=== PATIENT | male | born 1970 | race African-American/Black ===

== ENCOUNTER 2020-12-14 17:42 | Observation (INO) | payer MEDICARE, MEDICAID ==
[~2020-12-14] VITALS: Ht 188 cm; Wt 83.0 kg
[~2020-12-14 17:42] MED LIST: (NONE)25 ML; (NONE)25 ML IM; ALLEGRA-D 1212 HOUR PO; AUGMENTIN500TAB PO; BACTRIM DS1 TAB PO; CEPHALEXIN500 MG OR; CIPRO500 MG OR; CYANOCOBALAM1000 MCG IM; DILANTIN100 MG PO; FLULAVAL IM; KEFLEX500 MG PO; NAPROSYN500 MG PO; VITAMIN B-121000 MC1 IM; ZOFRAN ODT4 MG OR; ZPAK PO
--- NOTE | 2020-12-14 17:42 | NUR ---
PT ARRIVES VIA EMS STRETCHER TO ROOM # 9
--- NOTE | 2020-12-14 19:08 | NUR ---
Andrew BROWN CASINO GAMING WORKER IN ROOM COLLECTING LABS.
--- NOTE | 2020-12-14 19:14 | NUR ---
EKG COMPLETED AND GIVEN TO PHYSICIAN.
[2020-12-14 19:16] LABS: HEMATOCRIT 47.2 % (39.0-50.0); HEMOGLOBIN 15.8 g/dl (14.0-18.0); IMMATURE GRANULOCYTES 0.1 % (0.0-5.0); MEAN CELL VOLUME 88.7 fL CALC (80.0-100.0); MEAN CORPUSCULAR HGB 29.7 pG CALC (26.0-32.0); MEAN CORPUSCULAR HGB CONC 33.5 g/dL CAL (32.0-36.0); NEUT# 5.29 thou/uL (1.82-7.42); RED BLOOD COUNT 5.32 mill/uL (4.70-6.10); RED CELL DISTRI WIDTH 12.5 % (11.5-15.5)
[2020-12-14 19:34] LABS: ALBUMIN 4.7 g/dL (3.2-5.0); ALKALINE PHOSPHATASE 79 u/l (38-126); ANION GAP 15 (6-22 (CALC)); BILIRUBIN, TOTAL 0.6 mg/dL (0.0-1.4); BUN 9 mg/dL (9-20); BUN/CREATININE RATIO 7 (12-20 (CALC)); CARBON DIOXIDE 27 mmol/l (22-30); CHLORIDE 99 mmol/l (95-108); CREATININE 1.2 mg/dL (0.7-1.3); GFR > 60 ML/MIN (>=60 (CALC)); GFR FOR AFR.AMER. > 60 ML/MIN (>=60 (CALC)); POTASSIUM 4.2 mmol/l (3.5-5.1); SGOT/AST 23 u/l (17-59); SODIUM 137 mmol/l (137-146)
--- NOTE | 2020-12-14 19:39 | NUR ---
CALL RECEIVED FROM PT'S AUNT, PROVIDED PT WITH CALLERS NAME. PT VERBALIZES PERMISSION FOR UPDATES TO BE PROVIDED. UPDATE ON PT'S STATUS PROVIDED.
--- NOTE | 2020-12-14 19:45 | NUR ---
PT DOWN TO CT.
--- NOTE | 2020-12-14 19:55 | NUR ---
R-ESSIE 20G INITIATED X1 ATTEMPT FOR CTA IN CT DEPARTMENT.
--- NOTE | 2020-12-14 20:20 | NUR ---
PT RETURNS FROM CT BACK TO ROOM 9.
--- NOTE | 2020-12-14 20:36 | NUR ---
Andrew BROWN MEAT PROCESS WORKER COLLECTED 2ND SET BLOOD CX PERIPHERALLY.
--- NOTE | 2020-12-14 20:40 | NUR ---
PT CHANGED INTO GOWN, REMOVES SHIRT AND SHORTS. CLOTHING HAS STRONG URINE SMELL. PT REFUSES REMOVE BOXERS. SHIRT AND SHORTS BAGGED AND GIVEN TO BROTHER.
--- NOTE | 2020-12-14 20:45 | NUR ---
URINE SAMPLE COLLECTED AND SENT TO LAB
--- NOTE | 2020-12-14 21:04 | NUR ---
COVID SWAB COLLECTED BY Hitesh FELICIANO RN.
--- NOTE | 2020-12-14 21:23 | NUR ---
TELEPHONE REPORT GIVEN TO Moshe ULLOA RN, PT TRANSFERRED UPSTAIRS VIA .
--- NOTE | 2020-12-14 21:50 | NUR ---
ADMITTING ROOM PROVIDED TO BROTHER HE REQUESTED.
--- NOTE | 2020-12-14 21:57 | NUR ---
ATTEMPTED TO CALL REPORT TO [facility] UNIT. ADVISED NURSE UNAVAILABLE AND SHE WILL CALL BACK.
--- NOTE | 2020-12-14 22:23 | NUR ---
TELEPHONE REPORT GIVEN TO Moshe ULLOA RN, PT TRANSFERRED UPSTAIRS VIA .
--- NOTE | 2020-12-14 22:25 | NUR ---
Admission Note Report Given to: Moshe ULLOA Transported by: X Wheelchair Stretcher Transported with: X Nurse Transporter Patent IV O2 Women'S Studies Lecturer Location: ICU X [facility]
[2020-12-14 22:39] VITALS: BP 156/90
--- NOTE | 2020-12-14 22:45 | NUR ---
Received admission from ER. Oriented to person and place. Vital signs are stable, refused pain at this time. Admission Data and admission assesment completed. Educated and oriented PT about plan of care, medications, fall precautions and Med-Surge rules department. No personal belons observed aexcept underswear. Pt move and used the urinal by himself.
--- NOTE | 2020-12-15 | NUR ---
Hourly rounding done. Pt refused any pain at this time. Follow seizure and falls precautions.
[2020-12-15 00:28] LABS: URINE BILIRUBIN - DIPSTICK NEGATIVE (NEGATIVE); URINE BLOOD DIPSTICK NEGATIVE (NEGATIVE); URINE CLARITY CLEAR; URINE COLOR YELLOW; URINE GLUCOSE - DIPSTICK NEGATIVE (NEGATIVE); URINE KETONE NEGATIVE (NEGATIVE); URINE LEUK ESTERASE SMALL (Negative); URINE NITRITE - DIPSTICK NEGATIVE (Negative); URINE PROTEIN - DIPSTICK NEGATIVE (NEG-TRACE); URINE UROBILINOGEN - DIPSTICK 0.2 E.U./dL (0.2)
[2020-12-15 00:48] LABS: URINE SQUAMOUS EPITHELIAL CELL FEW EPI/hpf (0-FEW)
[2020-12-15 04:00] VITALS: BP 124/75
--- NOTE | 2020-12-15 04:18 | NUR ---
Hourly rounding. PT refused any pain at this time. Vitals signs are stable. follow Seuzures and falls precautions.
--- NOTE | 2020-12-15 07:00 | NUR ---
PT REPORT RECEIVED FROM NIGHT NURSESTEFANIA
--- NOTE | 2020-12-15 08:00 | NUR ---
PT WAS FOUND RESTING IN BED IN SEMI-GRACE'S POSITION;PT IS ALERT AND ORIENTED;HE WAS ORIENTED TO PERSON AND PLACE, BUT UNABLE TO TELL ME HIS BIRTHDATE;PT SPEECH IS SLURRED BUT ACCORDING TO FAMILY THIS IS NORMAL;VS AND ASSESSMENT WERE COMPLETED;HEART SOUNDS ARE REGULAR IN RATE AND RHYTHM;LUNG SOUNDS ARE CLEAR BUT DIMINISHED IN ALL LOBES;RESPIRATIONS ARE EVEN AND UNLABORED ON RA;ABDOMEN IS SOFT AND ACTIVE BOWEL SOUNDS PRESENT IN ALL QUADRANTS;#20G IV IN RAC IS SL, PATENT AND APPEARS FREE OF COMPLICATIONS AT THIS TIME;SAFETY PRECAUTIONS IN PLACE;SEIZURE PRECAUTIONS IN PLACE WITH SIDE RAILS PADDED;CALL LIGHT WITHIN REACH;PT ENCOURAGED TO CALL WITH ANY NEEDS OR CONCERNS;BED IN LOWEST POSITION WITH BED ALARM ON;WILL CONTINUE TO MONITOR.
--- NOTE | 2020-12-15 10:00 | NUR ---
AND MARCO BROTHERS AT BEDSIDE DISCUSSING POC WITH PT
--- NOTE | 2020-12-15 12:00 | NUR ---
PT WAS FOUND RESTING IN BED EATING LUNCH;PT HAS NO COMPLAINTS OF PAIN AT THIS TIME;SAFETY PRECAUTIONS IN PLACE;SEIZURE PRECAUTIONS IN PLACE;BED IN LOWEST POSITION WITH BED ALARM ON;CALL LIGHT WITHIN REACH;WILL CONTINUE TO MONITOR.
[2020-12-15 15:36] VITALS: BP 131/93
--- NOTE | 2020-12-15 16:00 | NUR ---
PT WAS FOUND IN BED WATCHING TV;BROTHER HAD BEEN AT BEDSIDE EARLIER;#20G IV IN RAC IS SL, PATENT AND FREE OF COMPLICATIONS AT THIS TIME;SAFETY AND SEIZURE PRECAUTIONS IN PLACE;CALL LIGHT WITHIN REACH;WILL CONTINUE TO MONITOR.
[2020-12-15 21:12] VITALS: BP 133/87
--- NOTE | 2020-12-15 22:25 | NUR ---
PT RECEIVED VISITORS AT THIS TIME, APPOVED BY MR KRUSE (), PT ARE OK WITH THE FAMILY MEMBER, EDUCATED AND ORIENTED ABOUT VISITIORS HOURS FROM [facility].
--- NOTE | 2020-12-15 22:28 | NUR ---
RECEIVED PT FROM MS. JULIANE LANDA. PT ORIENTED TO PERSON AND PLACE. VITALS SIGNS ARE STABLE. NEW ORDER FOR LIDOCAINE PENDING, MEDICATION ARE NOT AVALAIBLE AT THIS TIME, MR. KRUSE() ARE AWARE, FOLLOW UP TOMORROW AT DAY SHIFT.
--- NOTE | 2020-12-16 00:36 | NUR ---
AFTER RECEIVED VISITED FROM FAMILY MEMBER (CHANDANA HIS SISTER) PT OBSERVED CALM, COOPERATIVE AND SLEEP. REFUSED PAIN AT THIS TIME AND VITAL SIGNS ARE STABLE. PT EDUCATED ABOUT FALLS AND SEUZURES PRECAUTIONS.
--- NOTE | 2020-12-16 04:24 | NUR ---
HOURLY ROUNDING. VITAL SIGNS ARE STABLE, PT OBSERVED CALM, AND SLEEP. NO COMPLAINS ABOUT PAIN. RE-EDUCATED ABOUT PLAN OF CARE, SEIZURES AND FALLS PRECAUTIONS.
[2020-12-16 05:04] VITALS: BP 117/74
[2020-12-16 05:53] LABS: HEMATOCRIT 43.5 % (39.0-50.0); HEMOGLOBIN 14.9 g/dl (14.0-18.0); IMMATURE GRANULOCYTES 0.1 % (0.0-5.0); MEAN CELL VOLUME 88.1 fL CALC (80.0-100.0); MEAN CORPUSCULAR HGB 30.2 pG CALC (26.0-32.0); MEAN CORPUSCULAR HGB CONC 34.3 g/dL CAL (32.0-36.0); NEUT# 5.13 thou/uL (1.82-7.42); RED BLOOD COUNT 4.94 mill/uL (4.70-6.10); RED CELL DISTRI WIDTH 12.4 % (11.5-15.5)
[2020-12-16 06:16] LABS: ALBUMIN 4.2 g/dL (3.2-5.0); ALKALINE PHOSPHATASE 72 u/l (38-126); ANION GAP 14 (6-22 (CALC)); BILIRUBIN, TOTAL 0.6 mg/dL (0.0-1.4); BUN 12 mg/dL (9-20); BUN/CREATININE RATIO 11 (12-20 (CALC)); CARBON DIOXIDE 27 mmol/l (22-30); CHLORIDE 101 mmol/l (95-108); CREATININE 1.2 mg/dL (0.7-1.3); GFR > 60 ML/MIN (>=60 (CALC)); GFR FOR AFR.AMER. > 60 ML/MIN (>=60 (CALC)); SODIUM 138 mmol/l (137-146); TOTAL PROTEIN 8.1 g/dL (6.3-8.2)
[2020-12-16 06:30] LABS: SGOT/AST 61 u/l (17-59)
--- NOTE | 2020-12-16 07:20 | NUR ---
REPORT RECEIVED FROM CORDELL AGUIAR
--- NOTE | 2020-12-16 08:50 | NUR ---
PT RESTING IN SEMI FOWLERS POSITION,A&O X3 WITH GARBLED SPEECH;VS OBTAINED AND ASSESSMENT COMPLETED;PT DENIES ANY CURRENT PAIN OR DISCOMFORTS,PAIN SCALE AND REPORTING EDUCATED;RESPIRATIONS EVEN AND UNLABORED ON RA,CLEAR LUNG SOUNDS;ABDOMEN SOFT ON PALPATION AND ACTIVE IN ALL 4 QUADRANTS;STRONG PEDAL PULSES;SKIN INTACT;#20G TO RAC FLUSHED AND PATENT,SITE APPEARS HEALTHY;SEIZURE PRECAUTIONS IN PLACE;PT ENCOURAGED TO CALL FOR ASSISTANCE IF NEEDED;FALL PRECAUTIONS IN PLACE WITH BED IN THE LOWEST POSITION AND CALL LIGHT IN REACH;WILL CONTINUE TO MONITOR
[2020-12-16 08:53] VITALS: BP 131/84
--- NOTE | 2020-12-16 11:25 | NUR ---
PT RESTING IN SEMI FOWLERS POSITION;RESPIRATIONS EVEN AND UNLABORED ON RA;PT DENIES ANY CURRENT PAIN OR DISCOMFORTS;IV SITE PATENT;PT ENCOURAGED TO CALL FOR ASSISTANCE IF NEEDED;FALL PRECAUTIONS IN PLACE WITH CALL LIGHT IN REACH;WILL CONTINUE TO MONITOR
--- NOTE | 2020-12-16 12:10 | NUR ---
AT BEDSIDE DISCUSSING POC WITH PT.
[2020-12-16] MEDS ORDERED: ZPAK PO (12:51)
[2020-12-16] MEDS ORDERED: IBUPROFEN600 MG PO (12:52)
--- NOTE | 2020-12-16 14:10 | NUR ---
ALL DISCHARGE INSTRUCTIONS PROVIDED AT THIS TIME;PT INSTRUCTED TO F/U WITH PCP. COMPLETE COURSE OF ABX, CONTINUE SEIZURE MEDICATIONS AND USE I.S;PT EDUCATED ON I.S. AT THIS TIME AND DEMONSTRATED UNDERSTANDING;ENCOURAGED USE 10X PER HOUR;RX FOR MOTRIN AND ZITHRO PROVIDED;IV SITE REMOVED WITH CATHETER INTACT;PT DENIES ANY ADDITIONAL NEEDS;WHEELCHAIR TO BE PROVIDED FOR D/C HOME;SISTER TO TRANSPORT PT HOME;WILL CONTINUE TO MONITOR
--- NOTE | 2020-12-16 14:40 | NUR ---
Discharge instructions given. Patient verbalizes understanding of same. Discharged in stable condition via Wheelchair to Home with family. All belongings sent with pt. PT TRANSPORTED TO [facility] IN STABLE CONDITION VIA WHEELCHAIR ACCOMPANIED BY SISTER AND ROMM[place].ALL BELONINGS LEFT WITH PT.
--- NOTE | 2020-12-18 08:24 | NUR ---
PRELIMINARY BLOOD CX RESULTS SHOW GRAM POSITIVE COCCI IN 2/4 VIALS, SAME SET. REPORTED TO SHIRA. PT RECEIVED ZITHROMAX AND ROCEPHIN WHILE ADMITTED, WAS DISCHARGED ON ZPAK. NO NEW ORDERS RECEIVED, WWILL F/U WITH FINAL
== END 2020-12-16 14:39 | disposition home or self-care (01) ==
LOC: EDBD 17:42 → ED 17:42 → ED-I 20:07 → ED 20:58 → MS2 20:59
PROVIDERS: Emergency Medicine; ADMIT Internal Medicine; ATTEND Internal Medicine
DX: S22.42XA Multiple fractures of ribs, left side, initial encounter for closed fracture (principal); J18.9 Pneumonia, unspecified organism; G40.909 Epilepsy, unspecified, not intractable, without status epilepticus; R47.89 Other speech disturbances; W18.39XA Other fall on same level, initial encounter; Y92.009 Unspecified place in unspecified non-institutional (private) residence as the place of occurrence of the external cause; Z20.822 Contact with and (suspected) exposure to COVID-19
CPT/HCPCS: G0378; Q9967

== ENCOUNTER 2024-01-28 20:08 | Emergency (ER) | payer MEDICARE ==
[2024-01-28] VITALS (10 sets, daily range): BP systolic 119–138; BP diastolic 74–89
[~2024-01-28] VITALS: Ht 193 cm; Wt 104.0 kg
[~2024-01-28 20:08] MED LIST changes: +IBUPROFEN600 MG PO
[2024-01-28] MEDS ORDERED: SODIUM CHLORIDE 0.9% 1,000 ML IV STA ×2 (20:28→21:31)
[2024-01-28] MEDS ORDERED: PROMETHAZINE HCL 25 MG/ML AMP IV ONE (20:30)
[2024-01-28] MEDS ORDERED: KETOROLAC TROMETHAMINE 30 MG/ML SDV IV ONE (20:30)
[2024-01-28 20:54] LABS: BASO% 0.2 % (0-3); HEMATOCRIT 40.1 % (39.0-50.0); HEMOGLOBIN 13.5 g/dl (14.0-18.0); LYMPH% 32.1 % (15-41); MEAN CELL VOLUME 88.7 fL CALC (80.0-100.0); MEAN CORPUSCULAR HGB 29.9 pG CALC (26.0-32.0); MEAN CORPUSCULAR HGB CONC 33.7 g/dL CAL (32.0-36.0); MONO% 14.8 % (2-13); NEUT# 2.69 thou/uL (1.82-7.42); NEUT% 52.9 % (42-76); RED BLOOD COUNT 4.52 mill/uL (4.70-6.10); RED CELL DISTRI WIDTH 12.2 % (11.5-15.5)
[2024-01-28 21:01] LABS: ALBUMIN 4.2 g/dL (3.2-5.0); BILIRUBIN, TOTAL 0.7 mg/dL (0.2-1.3); CREATININE 1.3 mg/dL (0.7-1.3); POTASSIUM 3.5 mmol/l (3.5-5.1); TOTAL PROTEIN 7.9 g/dL (6.3-8.2)
[2024-01-28] MEDS ORDERED: LACTATED RINGER'S 1,000 ML IV ONE (22:20)
[2024-01-28] MEDS ORDERED: PROMETHAZINE HY25 M1 PO (23:13)
== END 2024-01-28 23:30 | disposition home or self-care (01) ==
LOC: ED 20:08
PROVIDERS: Family Medicine
DX: U07.1 COVID-19 (principal); R10.11 Right upper quadrant pain; R10.33 Periumbilical pain; G40.909 Epilepsy, unspecified, not intractable, without status epilepticus; R11.2 Nausea with vomiting, unspecified